=== PATIENT | male | born 1995 | race Caucasian/White ===

== ENCOUNTER → 2019-05-30 16:01 | Outpatient (CLI) | payer BC, SELFPAY ==
--- NOTE | 2019-05-30 16:16 | RAD_ITS ---
STUDY: X-RAY - SOFT TISSUE NECK REASON FOR EXAM: Male, 24 years old. Snoring. TECHNIQUE: AP and lateral view(s) of the neck were obtained. COMPARISON: None. FINDINGS: The airway measures 11.2 mm from the posterior base of the tongue to the anterior prevertebral soft tissues at the C3 level. Normal epiglottis. Normal visualized subglottic tracheal air column. Normal prevertebral soft tissue structures. Normal visualized osseous structures. The soft tissue structures are unremarkable. RAD/Neck for Soft Tissue IMPRESSION: AP dimension of the airway measures 11.2 mm as described. Electronically Signed: Brandon Segovia, at 13:34 EDT , Service support ,
== END ==
PROVIDERS: Referring Provider Otolaryngology Otolaryngology/Facial Plastic Surgery; Visit Provider Otolaryngology Otolaryngology/Facial Plastic Surgery
DX: R06.83 Snoring (principal)
CPT/HCPCS: 70360